=== PATIENT | female | born 1930 | race Caucasian/White ===

== ENCOUNTER 2017-06-11 13:05 | Outpatient (CLI) | payer MEDICARE ==
--- NOTE | 2017-06-11 15:13 | XRAY Report ---
TWO VIEW CHEST: 06/11/2017 COMPARISON: Comparison study two view chest 11/12/2014. INDICATION: Chronic cough. TECHNIQUE: Two views. FINDINGS: Clear lungs. No pneumothorax or pleural effusion. Stable appearance of the mediastinum. IMPRESSION: NO EVIDENCE OF ACUTE THORACIC PROCESS. TD: 06/11/2017 15:12 MTDD
== END 2017-06-11 13:06 | disposition home or self-care (01) ==
LOC: DI 13:05
PROVIDERS: ATTEND Internal Medicine
DX: R05 Cough (principal)
CPT/HCPCS: 71046

== ENCOUNTER 2017-08-06 10:28 | Inpatient (IN) | payer MEDICARE ==
--- NOTE | 2017-08-06 11:44 | CT Report ---
EXAM: CT HEAD EXAM DATE: 08/06/2017 11:33 AM. CLINICAL HISTORY: Stroke sx, awoke with sx. Left-sided weakness. COMPARISON: None. TECHNIQUE: Multiaxial CT images were obtained from the foramen magnum to the vertex. Reformats: Coron al. IV contrast: None. In accordance with CT protocol optimization, one or more of the following dose reduction techniques w ere utilized for this exam: automated exposure control, adjustment of mA and/or KV based on patient s ize, or use of iterative reconstructive technique. FINDINGS: Parenchyma: No intraparenchymal hemorrhage. No evidence of mass, midline shift, or CT findings of acu te infarction. Huerta-white differentiation is distinct. Diffuse chronic microangiopathic white matter changes are evident. Extraaxial Spaces: Normal for age. No subdural or epidural collections identified. Ventricles: The ventricles and cortical sulci are enlarged, consistent with age-related tissue loss. Sinuses and orbits: Imaged paranasal sinuses, orbits, and mastoids show no significant abnormality. Bones: No evidence of fracture or calvarial defect. Other: None. IMPRESSION: Generalized age-related cortical atrophic changes without evidence of acute intracranial abnormality. [facility] The call report notification system was initiated by Dr. Samuel Hernandez at 11:39 hrs on 08/06/17. The above findings were discussed with Dr. Blanchard by Dr. Samuel Hernandez at 11:41 hrs on 08/06/17. Referring Provider Line: [phone] SITE ID: [id number]
[2017-08-06] MEDS ORDERED: IOPAMIDOL-300 100 ML VIAL ONE (11:47)
--- NOTE | 2017-08-06 11:47 | ED Physician Documentation ---
History of Present Illness - Stated complaint Stated Complaint: STROKE LIKE SX - Chief complaint Chief Complaint: Neuro - Additonal information Additional information: hx from family 87 female has dementia was baseline last night this AM at 730 family noted her to have some diff ambulating and not have her clothes on correctly went back to bed when she awoke her daughter noticed her to be unable to stand or walk unassisted and to have weakness to her left arm and leg and diff coordinating her left side no fall no recent fever cough NVD denies pain Review of Systems Constitutional: denies: Fever Cardiac: denies: Chest pain / pressure Respiratory: denies: Dyspnea GI: denies: Abdominal Pain Neurologic: reports: Focal weakness. denies: Numbness, Headache Endocrine: denies: Easy bruising / bleeding Immunocompromised: denies: Immunocompromised PD PAST MEDICAL HISTORY - Past Medical History Cardiovascular: High cholesterol Neuro: Dementia - Past Surgical History Past Surgical History: No - Present Medications Home Medications: Ambulatory Orders Medication Instructions Recorded Confirmed PARoxetine [Paxil] 10 mg PO DAILY 11/11/14 08/06/17 Loratadine [Claritin] 10 mg PO DAILY 08/06/17 08/06/17 - Allergies Allergies/Adverse Reactions: Allergies Allergy/AdvReac Type Severity Reaction Status Date / Time No Known Drug Allergies Allergy Verified 11/11/14 23:30 - Social History Does the pt smoke?: No Smoking Status: Never smoker Does the pt drink ETOH?: No Does the pt have substance abuse?: No - Immunizations Immunizations are current?: Yes - POLST Patient has POLST: No PD ED PE NORMAL - Vitals Vital signs reviewed: Yes - General General: No: Alert and oriented X 3 (confused) - HEENT HEENT: PERRL - Neck Neck: Supple, no meningeal sign - Cardiac Cardiac: RRR - Respiratory Respiratory: No respiratory distress - Abdomen Abdomen: Soft, Non tender - Neuro Neuro: No sensory deficit. 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, No motor deficit, Normal speech Eye Opening: Spontaneous Motor: Obeys Commands Verbal: Confused GCS Score: 14 Results - Vitals Vitals: Vital Signs - 24 hr 08/06/17 10:36 Temperature 36.3 C L Heart Rate 56 L Respiratory 16 Rate Blood Pressure 141/87 H O2 Saturation 91 L Oxygen O2 Source Room air - EKG (time done) 1043 Rate: Rate (enter#) Rhythm: NSR (with many PACs) Intervals: LBBB Compare to prior EKG: Old EKG unavailable - Labs Labs: Laboratory Tests 08/06/17 08/06/17 08/06/17 10:51 11:45 11:45 WBC 5.5 RBC 4.30 Hgb 12.5 Hct 37.0 MCV 86.0 MCH 28.9 MCHC 33.6 RDW 13.3 Plt Count 172 MPV 9.1 Neut # 3.4 Lymph # 1.4 L Dawes # 0.5 Eos # 0.1 Baso # 0.1 Absolute Nucleated RBC 0.00 Nucleated RBC % 0.0 PT 11.6 INR 1.0 APTT 25.9 Sodium Potassium Chloride Carbon Dioxide Anion Gap BUN Creatinine Estimated GFR (MDRD) Glucose POC Whole Bld Glucose 91 Calcium 08/06/17 11:45 WBC RBC Hgb Hct MCV MCH MCHC RDW Plt Count MPV Neut # Lymph # Dawes # Eos # Baso # Absolute Nucleated RBC Nucleated RBC % PT INR APTT Sodium 136 Potassium 3.9 Chloride 104 Carbon Dioxide 25 Anion Gap 7.0 BUN 22 H Creatinine 1.0 Estimated GFR (MDRD) 53 L Glucose 101 H POC Whole Bld Glucose Calcium 8.7 - Rads (name of study) CTH Radiology: See rad report (no acute) CTA brain Radiology: See rad report (no acute GEORGI MCA process, atherosclerosis) CTA neck Radiology: See rad report (no acute, atherosclerosis) PD MEDICAL DECISION MAKING - ED course ED course: pt is not a TPA candidate 2/2 time of onset not known after CTs repeat neuro exam slightly improved but still with some slight slurred speech and L arm drift d/w Uzbek neuro - feels likely to be a small R lacunar - given that she is not a TPA candidate and has no GEORGI MCA or posterior thrombus to remove via IR, rec admit, start asa, get echo MRI etc paged hospitalist for admit at 1430 Departure - Departure Disposition: 66 [facility] DC/Xfer Clinical Impression: Left bundle branch block (LBBB) Stroke Qualifiers: CVA mechanism: unspecified Qualified Code(s): I63.9 - Cerebral infarction, unspecified Condition: Fair Discharge Date/Time: 08/06/17 17:15 NIHSS - Time Time: 11:20 - Level of Consciousness Level of consciousness: (0) Alert, Keenly responsive LOC Questions: (2) Answers neither correct LOC Commands: (0) Performs both correctly - Gaze Best Gaze: (0) Normal - Visual Visual: (0) No loss - Facial Palsy Facial Palsy: (1) Minor paralysis (tongue deviates right) - Motor Arms (both separate) Motor Arm (right): (0) No drift Motor Arm (left): (1) Drift - Motor Legs (both separate) Motor Leg (right): (0) No drift Motor Leg (left): (1) Drift - Limb Ataxia Limb Ataxia: (1) Present in 1 limb - Sensory Sensory: (0) Normal - Best Language Best Language: (0) No aphasia - Dysarthria Dysarthria: (1) Wexi-fu-ltveimyi dysarthria - Extinction and Inattention (formally neg Extinction and inattention: (1) Visual,tactile,auditory,spatial, or personal inattention - Total Score/Results Total Score/Result: 8
[2017-08-06 11:51] LABS: BASOPHILS # (AUTO) 0.1 10^3/uL (0.0-0.1); BASOPHILS % (AUTO) 1.1 %; EOSINOPHILS # (AUTO) 0.1 10^3/uL (0.0-0.7); EOSINOPHILS % (AUTO) 2.1 %; HGB - HEMOGLOBIN 12.5 g/dL (12.0-16.0); LYMPHOCYTES # (AUTO) 1.4 10^3/uL (1.5-3.5); LYMPHOCYTES % (AUTO) 25.2 %; MEAN CORPUSCULAR HEMOGLOBIN 28.9 pg (27.0-31.0); MEAN CORPUSCULAR HGB CONC 33.6 g/dL (32.0-36.0); MEAN PLATELET VOLUME 9.1 fL (7.9-10.8); MONOCYTES # (AUTO) 0.5 10^3/uL (0.0-1.0); MONOCYTES % (AUTO) 8.7 %; NEUTROPHILS # (AUTO) 3.4 10^3/uL (1.5-6.6); NEUTROPHILS % (AUTO) 62.9 %; PLT - PLATELET COUNT 172 10^3/uL (130-450); RED CELL DISTRIBUTION WIDTH 13.3 % (12.0-15.0); WHITE BLOOD COUNT 5.5 x10^3/uL (4.8-10.8)
[2017-08-06 11:59] LABS: CALCIUM 8.7 mg/dL (8.5-10.3)
--- NOTE | 2017-08-06 12:00 | CT Preliminary Report ---
Exam: CT NECK ANGIO IMPRESSION: 1. Prominent atherosclerotic disease at the left cervical carotid artery bifurcation. Maximal luminal stenosis is at the terminus of the left common carotid artery, measures 63%. 2. Prominent focal origin stenosis also of the left external carotid artery. 3. No acute abnormality or significant stenosis of the cervical vertebral arteries, right cervical ca rotid artery and left cervical internal carotid artery. 4. Prominent chronic degenerative changes in the cervical spinal column and notable left mandibular d ental decay. [facility] SITE ID: [id number]
[2017-08-06 12:05] LABS: PT - PROTHROMBIN TIME 11.6 secs (9.9-12.6)
--- NOTE | 2017-08-06 12:07 | CT Preliminary Report ---
Exam: CT HEAD ANGIO Head CT angiogram Impression: 1. No proximal intracranial acute large vessel occlusion. 2. Intracranial arterial atherosclerotic disease with stenosis is present involving both distal inter nal carotid arteries and both posterior cerebral arteries. 3. No acute abnormality or significant stenosis of the proximal segments of the anterior or middle ce rebral arteries. [facility] SITE ID: [id number]
--- NOTE | 2017-08-06 12:07 | CT Report ---
EXAM: CT ANGIOGRAM NECK EXAM DATE: 08/06/2017 11:36 AM. CLINICAL HISTORY: Reported history of acute stroke symptoms including left-sided weakness. COMPARISON: None. TECHNIQUE: Routine axial helical imaging was performed from the skull base through the aortic arch. R econstructions: Routine multiplanar 3D MIP reconstructions. IV Contrast: 100 mL Isovue-300. Evaluatio n of arterial stenosis is based on a NASCET method of measurement. In accordance with CT protocol optimization, one or more of the following dose reduction techniques w ere utilized for this exam: automated exposure control, adjustment of mA and/or KV based on patient s ize, or use of iterative reconstructive technique. FINDINGS: Chronic multilevel hypertrophic degenerative cervical spinal spondylosis. Poor dentition, multifocal dental decay, especially in the left mandible. No acute abnormality or significant stenosis of the ce rvical vertebral arteries. Heavy atherosclerotic calcification is present in the region of the left cervical carotid bifurcation . Severe-appearing origin stenosis of the left external carotid artery. At the left common carotid ar annemarie terminus, maximal luminal stenosis measures 63%. The left internal carotid artery itself does no t show acute abnormality or flow limiting stenosis. No acute abnormality or significant stenosis of the right cervical carotid artery, atherosclerotic di sease at the right cervical carotid bifurcation is minimal. IMPRESSION: 1. Prominent atherosclerotic disease at the left cervical carotid artery bifurcation. Maximal luminal stenosis is at the terminus of the left common carotid artery and measures 63%. 2. Prominent focal origin stenosis also of the left external carotid artery. 3. No acute abnormality or significant stenosis of the cervical vertebral arteries, right cervical ca rotid artery and left cervical internal carotid artery. 4. Prominent chronic degenerative changes in the cervical spinal column and notable left mandibular d ental decay. [facility] Referring Provider Line: [phone] SITE ID: [id number]
--- NOTE | 2017-08-06 12:25 | CT Report ---
EXAM: CT ANGIOGRAM HEAD. CT SCAN OF THE HEAD WITH CONTRAST. EXAM DATE: 08/06/2017 11:36 AM CLINICAL HISTORY: Reported acute stroke symptoms including left-sided weakness. COMPARISON: None. TECHNIQUE: - CT Scan Head: Using a multidetector scanner, axial images were acquired from the foramen magnum to the skull vertex following contrast administration. - CT Angiogram: Using a multidetector scanner, high-resolution axial images were acquired from the sk ull base through vertex following rapid infusion of intravenous contrast. Reformats: Multiplanar MIP reformats were reconstructed. Nascet criteria used for stenosis measurement. IV Contrast: 100 mL Isovue-300. In accordance with CT protocol optimization, one or more of the following dose reduction techniques w ere utilized for this exam: automated exposure control, adjustment of mA and/or KV based on patient s ize, or use of iterative reconstructive technique. FINDINGS: Brain CT with contrast: No abnormal enhancement. Awro-od-tbajkdvh diffuse brain atrophy is present. Head CT angiogram: Moderately prominent atherosclerotic calcifications of the cavernous and paraclinoid segments of both internal carotid arteries. Mild to moderate luminal stenosis of the paraclinoid segments of both int ernal carotid arteries. No intracranial vertebrobasilar insufficiency. Eeum-ym-prrtieod focal luminal stenosis of the left CHINCHILLA FARMER at the junction of the first and second order segments, most consistent with intracranial atherosclerotic disease. Mild multifocal stenosis and irregularity consistent with intracranial atherosclerotic disease of the visualized segments of the right posterior cerebral artery. No proximal flow-limiting stenosis, filling defect or occlusion of the middle cerebral arteries bilat erally. Patent small right posterior communicating artery. No evidence for eagle of Kumari aneurysm. No evid ence for major dural venous sinus thrombus. IMPRESSION: 1. No proximal intracranial acute large vessel occlusion. 2. Intracranial arterial atherosclerotic disease with stenosis is present involving both distal inter nal carotid arteries and both posterior cerebral arteries. 3. No acute abnormality or significant stenosis of the proximal segments of the anterior or middle ce rebral arteries. [facility] Referring Provider Line: [phone] SITE ID: [id number]
[2017-08-06] MEDS ORDERED: IOPAMIDOL-300 100 ML VIAL IVP ONE (12:45)
[2017-08-06] MEDS ORDERED: ASPIRIN CHEW 81 MG TABLET PO STA (15:02)
[2017-08-06] MEDS ORDERED: SODIUM CHLORIDE FLUSH 0.9% 10 ML SYRINGE IVP PRN (15:17)
--- NOTE | 2017-08-06 16:41 | HISTORY & PHYSICAL EXAMINATION ---
Chief Complaint - Chief Complaint Chief Complaint: ataxia History of Present Illness - Admitted From Admitted From:: ED - History Obtained From Records Reviewed: yes History obtained from: chart review, patient, family Exam Limitations: AMS - History of Present Illness HPI Comment/Other: Nolvia Del Valle is an 87-year old female with a past medical history of advanced dementia, hyperlipidemia, baseline life-long cognitive delay, history of pneumonia, chronic cough, and short term memory loss. She presented to the ED today with symptoms of CVA. She lives with her niece, Dinah, who recently took on guardianship a few weeks ago. For the past few weeks, the patient has been sleeping much less (up to 3 hours per day less) and having episodes of dizziness. She went to bed as usual last evening, and this morning upon awakening was found to have only the right side of her underwear pulled up after coming from the bathroom. This was alarming to her niece. She went back to bed, and awoke again with profound weakness and could no longer lift her body to a standing position. She was also noted to be weak on her left side and could not speak or answer questions. Baseline, she is demented and requires 24 hour supervision with life-long cognitive delay. She has no recent associated symptoms and denies chest pain, SOB, N/V or a new cough. She will be admitted to inpatient for a CVA work up with possible SNF placement. The patient's legal guardian, Dinah assisted me with this admission. History - Past Medical History Cardiovascular: reports: High cholesterol Neuro: reports: Dementia GI: reports: None CLIENT SERVICE CONSULTANT: reports: None : reports: Incontinence (stress related to cough), Nocturia Psych: reports: Anxiety, Obsessive compulsive disorder Musculoskeletal: reports: None Derm: reports: None MRSA Hx?: No - Past Surgical History HEENT: reports: Cataracts Derm: reports: Skin cancer surgery (forehead-removed) - Family & Social History Family History: Mother: , Father: , Sister: , Brother: Family History Comment/Other: The patient's mother from stomach cancer, father of throat cancer. The patient had 3 brothers and one sister who also suffered from cancer. Living arrangement: At home Living Situation: With family Social History [place]: [place] Dinah, her niece took over her primary care and is now her legal gaurdian. The patient had one son, who . The patient was for several years and she lost her just before her son . Both her and her son were her care takers. The patient worked at an [employer] in her younger years in the state [facility]. She requires 24 hour care/ supervision. Dinah lives with her Vic who is supportive and kind. They have 2 dogs. The patient does not drive and seems to enjoy daily life. The patient wishes to be a DNR as confirmed by oli Nix. - Substance History Use: Uses substance without health or social issues: NONE Abuse: Recurrent use of substance despite neg consequences: NONE Dependence: Experiences withdrawal or developed tolerances: NONE - POLST Patient has POLST: No POLST Status: DNR Meds/Allgy - Home Medications Home Medications: Ambulatory Orders Medication Instructions Recorded Confirmed PARoxetine [Paxil] 10 mg PO DAILY 11/11/14 08/06/17 Loratadine [Claritin] 10 mg PO DAILY 08/06/17 08/06/17 - Allergies Allergies/Adverse Reactions: Allergies Allergy/AdvReac Type Severity Reaction Status Date / Time No Known Drug Allergies Allergy Verified 11/11/14 23:30 Review of Systems - Constitutional Constitutional: reports: Fatigue, Weakness - Eyes Eyes: reports: Vision loss - Ears, Nose & Throat Ears, Nose & Throat: reports: Hearing loss, Postnasal drainage, Dental decay - Cardiovascular Cariovascular: reports: Lightheadedness - Respiratory Respiratory: reports: Cough - Genitourinary Genitourinary: reports: Other (stress incontinience) - Integumentary Integumentary: reports: Dryness - Neurological Neurological: reports: Dizziness, Memory problems, Pre-existing deficit, Incoordination, Other - Psychiatric Psychiatric: reports: Anxiety, Other (OCD-Paxil) - Hematologic/Lymphatic Hematologic/Lymphatic: reports: Bruising (Right calf) - All Other Systems All Other Systems: reports: Reviewed and negative Exam - Vital Signs Reviewed Vital Signs: Yes - Physical Exam General Appearance: positive: No acute distress, Alert Eyes Bilateral: positive: Normal inspection, PERRL ENT: positive: ENT inspection nml, Pharynx nml, No signs of dehydration, Pharyngeal erythema Neck: positive: Nml inspection, Thyroid nml, No JVD, Trachea midline, Stiff neck Respiratory: positive: Chest non-tender, No respiratory distress, Breath sounds nml Cardiovascular: positive: Regular rate & rhythm, No murmur, No gallop, Decreased pulse(s) Peripheral Pulses: positive: 1+ Abdomen: positive: Non-tender, No organomegaly, Nml bowel sounds, No distention Back: positive: Nml inspection Skin: positive: No rash, Warm, Dry, Pallor Extremities: positive: Non-tender, Full ROM, Nml appearance, No pedal edema, Other (BLE cool, + sensation) Neurologic/Psychiatric: positive: Disoriented to place, Disoriented to time, Weakness, Sensory loss, Slurred/abnml speech, Depressed mood/affect, Other ( expressive aphasia) Reflexes: Bicep (R): 2+, Bicep (L): 1+ Conclusion/Plan - Problem List (1) Left-sided weakness Conclusion/Plan: The patient was found to be non-ambulatory upon arriving to the ED, and upon exam has deficit on the left. Plan: Will order PT/OT. Fall precautions. (2) Cognitive developmental delay Conclusion/Plan: The patient has likely had a life long struggle with her delay. As per reports from her niece, Dinah, who is also her guardian; the patient has always lived with someone who has cared for her. In school, she was unable to learn to read or write. I suspect that the injury to her brain d/t acute CVA will only make matters worse. Plan: Continue to monitor mental status. (3) Stroke Conclusion/Plan: The patient has ruled in for an acute CVA and will undergo the full work up. An brain MRI was ordered immediately at the time of admit and the final results are pending. Head CT, CTA were negative for bleeding or blockages. Plan: Admit to inpatient and await results. Qualifiers: CVA mechanism: unspecified Qualified Code(s): I63.9 - Cerebral infarction, unspecified (4) Advanced dementia Conclusion/Plan: The patient requires 24 hour care as her judgment is severely impaired. She has gradually become worse, and more so within the past year, according to her niece, Dinah who is her primary medicare interviewer. Dinah relays to me that she has been stressed lately due to the patient's shortened sleep cycle that started about 1 week ago. Plan: Fall precautions and frequent nursing care. (5) Chronic sinusitis Conclusion/Plan: The patient has thickened mucosa as noted on preliminary imaging. Dinah, the patient's primary medicare interviewer and niece explains that her aunt has always had a pcl-pmb-pmwdyoqqey cough. I suspect that the patient has had chronic allergies/ sinusitis that has been causing the cough. Plan: I will do a HEENT exam tomorrow to confirm this, and start nasal sprays and a 3 day course of Afrin spray. - Lab Results Lab results reviewed: Yes Fish Bones: 08/07/17 04:30 08/07/17 04:30 - Diagnostic Imaging Results Diagnostic Imaging Results: positive: Final report reviewed - EKG Results EKG Interpreted Independently: Yes EKG Comparison: Old EKG unavailable Core Measures - Anticipated LOS I expect patient to be DC'd or transferred within 96 hours.: Yes - DVT/VTE - Prophylaxis VTE/DVT Device ordered at admit?: Yes VTE/DVT Prophylaxis med ordered at admit?: Yes - Stroke - Rehab Assessment Rehab services assessment to be ordered?: Yes - AMI - Statin at Admit Aspirin Prescribed on Admit: Yes
--- NOTE | 2017-08-06 16:41 | MRI Preliminary Report ---
Exam: MRI BRAIN W/O Impression: 1. Small, acute, nonhemorrhagic, lacunar type infarction, lateral right thalamus as described. 2. No other acute intracranial pathology is demonstrated. Critical result: A preliminary report for this examination was called to SHANNON Cyr, following interpretatio n on 08/06/2017 at 1638 hrs. SITE ID: [id number]
--- NOTE | 2017-08-06 17:34 | MRI Report ---
MRI BRAIN WITHOUT CONTRAST INDICATION: 87-year-old female with history of dementia. The patient presented this AM with acute str okelike symptoms including left-sided weakness. TECHNIQUE: 1. Sagittal T1 and coronal fat saturated T2. 2. Axial T1 3-D, FLAIR, T2, T2* and DWI. COMPARISON: Head CT 08/06/2017. FINDINGS: Again demonstrated is moderately advanced, generalized cerebral volume loss with associated ex vacuo ventriculomegaly. There appears to be disproportionately more advanced volume loss involving the ida ocampi/mesial temporal lobes with quite marked ex vacuo dilatation of the temporal horns of the later al ventricles. This pattern of volume loss suggests the possibility of Alzheimer's disease. A mild amount of white matter disease is identified in the supratentorial brain, manifested as focal and confluent T2 hyperintensities that are scattered throughout the periventricular, deep and subcort ical white matter bilaterally. A frontoparietal distribution predominates. In addition, there is invo lvement of the subinsular regions. There appear to be flow voids for the main intracranial arteries. A roughly 11 x 4 mm ovoid focus of T2 hyperintensity and diffusion restriction is identified in the l ateral aspect of the right thalamus, consistent with acute lacunar type infarction. There is at least mild T1 hypointensity suggesting that the infarction is probably at least 16 hours old. No other dif fusion restriction is demonstrated. No evidence of acute or chronic hemorrhage on T2* GRE sequence. Limited assessment of the orbits reveals no gross pathology. Changes of previous ocular lens extracti on are noted bilaterally. There is minor mucosal thickening in a few ethmoid air cells. The paranasal sinuses are otherwise caitlin ar. A small amount of fluid is demonstrated at the right mastoid tip of uncertain etiology but of doubtfu l clinical significance. No soft tissue swelling is identified overlying the right mastoid to suggest the possibility of active infection and there is no evidence of an obstructing nasopharyngeal mass. Marrow signal intensity in the regional skeletal structures is unremarkable. IMPRESSION: 1. Small acute nonhemorrhagic, lacunar type infarction, lateral right thalamus as described. 2. No other acute intracranial pathology is demonstrated. Critical result: A preliminary report for this examination was called to SHANNON Cyr, following interpretatio n on 08/06/2017 at 1638 hrs. Referring Provider Line: [phone] SITE ID: [id number]
[2017-08-06] MEDS: SODIUM CHLORIDE FLUSH 0.9% 10 ML SYRINGE IVP SCH (18:08)
[2017-08-06] MEDS: ENOXAPARIN 40 MG/0.4 ML SYRINGE SUBQ SCH (18:08)
[2017-08-06] MEDS: ATORVASTATIN 40 MG TABLET PO SCH ×2 (18:08→20:57)
[2017-08-06] MEDS: SODIUM CHLORIDE 0.9% 1,000 ML IV SCH (18:08)
[2017-08-06] MEDS ORDERED: SODIUM CHLORIDE 0.65% NASAL SPRAY NAS PRN (19:56)
[2017-08-06] MEDS ORDERED: TRIAMCINOLONE 55 MCG NASAL SPRAY NAS SCH (20:00)
[2017-08-06] MEDS: OXYMETAZOLINE NASAL SPRAY NAS SCH (21:41)
[2017-08-07 00:45] LABS: BILIRUBIN,URINE NEGATIVE (NEGATIVE); CLARITY,URINE CLEAR (CLEAR); GLUCOSE, URINE (UA) NEGATIVE (NEGATIVE); KETONES,URINE (UA) NEGATIVE (NEGATIVE); LEUKOCYTE ESTERASE, URINE TRACE (NEGATIVE); NITRITE,URINE NEGATIVE (NEGATIVE); OCCULT BLOOD,URINE NEGATIVE (NEGATIVE); PROTEIN,URINE NEGATIVE (NEGATIVE); UROBILINOGEN,URINE 0.2 (NORMAL) E.U./dL (NORMAL)
[2017-08-07 00:48] LABS: BACTERIA,URINE Rare /HPF (None Seen); RBC,URINE None Seen /HPF (0-5); SQUAMOUS EPITHELIAL CELL,UR MOD Squamous (<= Few)
[2017-08-07] MEDS: SODIUM CHLORIDE FLUSH 0.9% 10 ML SYRINGE IVP SCH ×3 (01:42→16:40)
[2017-08-07] MEDS: SODIUM CHLORIDE 0.9% 1,000 ML IV SCH (04:53)
[2017-08-07 05:02] LABS: BASOPHILS # (AUTO) 0.1 10^3/uL (0.0-0.1); BASOPHILS % (AUTO) 0.7 %; EOSINOPHILS # (AUTO) 0.1 10^3/uL (0.0-0.7); HGB - HEMOGLOBIN 12.4 g/dL (12.0-16.0); LYMPHOCYTES # (AUTO) 1.9 10^3/uL (1.5-3.5); LYMPHOCYTES % (AUTO) 25.3 %; MEAN CORPUSCULAR HEMOGLOBIN 28.3 pg (27.0-31.0); MEAN CORPUSCULAR HGB CONC 32.7 g/dL (32.0-36.0); MEAN CORPUSCULAR VOLUME 86.4 fL (81.0-99.0); MEAN PLATELET VOLUME 9.7 fL (7.9-10.8); MONOCYTES # (AUTO) 0.6 10^3/uL (0.0-1.0); MONOCYTES % (AUTO) 8.2 %; NEUTROPHILS # (AUTO) 4.7 10^3/uL (1.5-6.6); NEUTROPHILS % (AUTO) 63.8 %; PLT - PLATELET COUNT 186 10^3/uL (130-450); RED BLOOD COUNT 4.37 10^6/uL (4.20-5.40); WHITE BLOOD COUNT 7.3 x10^3/uL (4.8-10.8)
[2017-08-07 05:18] LABS: ALBUMIN 3.7 g/dL (3.2-5.5); ALBUMIN/GLOBULIN RATIO 1.2 (1.0-2.2); ALKALINE PHOSPHATASE 46 IU/L (42-121); ALT ALANINE AMINOTRANSFERASE 10 IU/L (10-60); AST ASPARTATE AMINOTRANSFERASE 21 IU/L (10-42); BILIRUBIN,TOTAL 0.8 mg/dL (0.2-1.0); BUN - BLOOD UREA NITROGEN 17 mg/dL (6-20); CALCIUM 8.7 mg/dL (8.5-10.3); CARBON DIOXIDE - CO2 24 mmol/L (21-32); CHLORIDE 109 mmol/L (101-111); CHOL/HDL RATIO 6.3 (<4.4); CHOLESTEROL 257 mg/dL; CREATININE 0.9 mg/dL (0.4-1.0); GFR - MDRD 60 (>89); GLUCOSE 112 mg/dL (70-100); HDL CHOLESTEROL 41 mg/dL; LDL CHOLESTEROL,CALCULATED 169 mg/dL; LDL/HDL RATIO 4.1 (<4.4); MAGNESIUM 2.1 mg/dL (1.7-2.8); SODIUM 140 mmol/L (135-145); TOTAL PROTEIN 6.7 g/dL (6.7-8.2); VLDL CHOLESTEROL 47 mg/dL
[2017-08-07] MEDS: PARoxetine 10 MG TABLET PO SCH (09:28)
[2017-08-07] MEDS: ENOXAPARIN 40 MG/0.4 ML SYRINGE SUBQ SCH (09:28)
[2017-08-07] MEDS: LORATADINE 10 MG TABLET PO SCH (09:28)
[2017-08-07] MEDS: OXYMETAZOLINE NASAL SPRAY NAS SCH ×2 (09:29→20:55)
[2017-08-07] MEDS: POLYETHYLENE GLYCOL 3350 17 GM PACKET PO SCH (09:30)
[2017-08-07] MEDS: FLUTICASONE NASAL SPRAY NAS SCH (09:43)
[2017-08-07] MEDS: ASPIRIN EC 325 MG TABLET PO SCH (10:50)
--- NOTE | 2017-08-07 17:19 | PROVIDER PROGRESS NOTE ---
Assessment/Plan - Problem List (1) Left-sided weakness Assessment/Plan: The patient was found to be non-ambulatory upon arriving to the ED, and has slowly improved since the time of admission. She has been progressing and can now ambulate with a wheeled walker with one person to assist. Plan: Continue physical therapy and fall precautions. (2) Cognitive developmental delay Assessment/Plan: The patient has likely had a life long struggle with her delay. As per reports from her niece, Dinah, who is also her guardian; the patient has always lived with someone who has cared for her. In school, she was unable to learn to read or write. The patient continues to have compulsive behaviors and does not always call for help when going into the bathroom. Although her ambulation has improved she still complains of numbness and tingling to her left fingers. Plan: Continue to monitor mental status. (3) Stroke Qualifiers: CVA mechanism: unspecified Qualified Code(s): I63.9 - Cerebral infarction, unspecified Assessment/Plan: The patient has ruled in for an acute CVA and will undergo the full work up. Head CT, CTA were negative for bleeding or blockages. A brain MRI was completed and confirms a small acute nonhemorrhagic, lucunar type infarction, lateral right thalamus. The patient has been hypertensive and is not at her baseline mentation. Plan: Continue to monitor. Continue high dose statin, ASA and hold B/P medications. (4) Advanced dementia Assessment/Plan: The patient requires 24 hour care as her judgment is severely impaired. She has gradually become worse, and more so within the past year, according to her niece, Dinah who is her primary post acute care registered nurse. Dinah relays to me that she has been stressed lately due to the patient's shortened sleep cycle that started about 1 week ago. The patient's dementia is now exacerbated by the recent insult of her acute CVA. Plan: Fall precautions and frequent nursing care. (5) Chronic sinusitis Assessment/Plan: The patient has thickened mucosa as noted on preliminary imaging. Dinah, the patient's primary post acute care registered nurse and niece explains that her aunt has always had a [id number]-tcyljyftiw cough. I suspect that the patient has had chronic allergies/ sinusitis that has been causing the cough. The patient's bilateral tympanic membranes are tight with milky fluid behind the membrane bilaterally. Plan: Continue nasal sprays and a 3 day course of Afrin spray. - Current Meds Current Meds: Current Medications Generic Name Dose Route Start Last Admin Trade Name Freq PRN Reason Stop Dose Admin Aspirin 325 mg 08/07/17 11:00 08/07/17 10:50 Ecotrin PO 325 mg DAILY KIAN Administration Atorvastatin Calcium 80 mg 08/06/17 17:00 08/06/17 20:57 Lipitor PO Not Given QPM KIAN Enoxaparin Sodium 40 mg 08/06/17 17:00 08/07/17 09:28 Lovenox SUBQ 40 mg DAILY KIAN Administration Fluticasone Propionate 2 sprays 08/07/17 09:00 08/07/17 09:43 Flonase REHAN 1 spr DAILY KIAN Administration Loratadine 10 mg 08/07/17 09:00 08/07/17 09:28 Claritin PO 10 mg DAILY KIAN Administration Oxymetazoline HCl 1 sprays 08/06/17 21:00 08/07/17 09:29 Afrin REHAN 08/09/17 20:59 1 spr BID KIAN Administration Paroxetine HCl 10 mg 08/07/17 09:00 08/07/17 09:28 Paxil PO 10 mg DAILY KIAN Administration Polyethylene Glycol 17 gm 08/07/17 09:00 08/07/17 09:30 Miralax PO Not Given DAILY KIAN Sodium Chloride 10 ml 08/06/17 15:17 08/06/17 21:39 Normal Saline Flush 0.9% IVP 10 ml PRN PRN Administration NEEDED PER PROVIDER ORDERS Sodium Chloride 10 ml 08/06/17 17:00 08/07/17 16:40 Normal Saline Flush 0.9% IVP 10 ml 0100,0900,1700 KIAN Administration - Lab Result Fish Bone Diagrams: 08/08/17 04:40 08/08/17 04:40 - EKG Results EKG Interpreted Independently: Yes - Diagnostic Imaging Results Diagnostic Imaging Results: Prelim report reviewed, Final report reviewed - Additional Planning Condition/Complexity: Improved My Orders: My Active Orders 08/06/17 17:00 Atorvastatin [Lipitor] 80 mg PO QPM Enoxaparin [Lovenox] 40 mg SUBQ DAILY 08/06/17 19:56 Sodium Chloride 0.65% [[place]] 1 sprays REHAN Q4HR PRN 08/06/17 21:00 Oxymetazoline [Afrin] 1 sprays REHAN BID 08/07/17 07:00 Echo Complete w/Bubble Study [ECHO] Stat 08/07/17 09:00 Fluticasone [Flonase] 2 sprays REHAN DAILY Loratadine [Claritin] 10 mg PO DAILY PARoxetine [Paxil] 10 mg PO DAILY 08/07/17 11:00 Aspirin EC [Ecotrin] 325 mg PO DAILY 08/07/17 17:00 OLANZapine ODT [ZyPREXA ODT] 5 mg TL DAILY 08/08/17 05:00 CBC - COMP BLD CT W/AUTO DIFF [HEME] DAILYLAB CMP [COMPREHENSIVE METABOLIC PANEL] [CHEM] DAILYLAB FREE T3 [IAI] DAILYLAB FREE T4 (FREE THYROXINE) [IAI] DAILYLAB MAGNESIUM [CHEM] DAILYLAB 08/09/17 05:00 CBC - COMP BLD CT W/AUTO DIFF [HEME] DAILYLAB CMP [COMPREHENSIVE METABOLIC PANEL] [CHEM] DAILYLAB MAGNESIUM [CHEM] DAILYLAB Consult/Specialty: PT Plan Discussed with:: Patient, Legal Gardian, Power of Harp Regulator Time Spent: 31-60 minutes Subjective - Subjective Patient Reports: Feeling Better, Cough, Fatigue Nursing Reports: No Complaints Objective Vital Signs: Vital Signs - 24 hr 08/06/17 08/07/17 08/07/17 18:06 00:00 04:20 Temperature 36.7 C 37.0 C 37.0 C Heart Rate [ Activity] Heart Rate [ 87 56 L 88 Radial] Heart Rate [ Supine] Respiratory 16 16 18 Rate Blood Pressure [Activity] Blood Pressure 160/92 H 136/89 H 174/83 H [Left Brachial artery] Blood Pressure [Right Brachial artery] Blood Pressure [Supine] O2 Saturation 99 99 99 08/07/17 08/07/17 08/07/17 06:00 08:36 11:25 Temperature 36.9 C Heart Rate [ 94 Activity] Heart Rate [ 99 Radial] Heart Rate [ 91 Supine] Respiratory 20 Rate Blood Pressure 170/81 H [Activity] Blood Pressure 169/70 H 142/83 H [Left Brachial artery] Blood Pressure [Right Brachial artery] Blood Pressure 154/80 H [Supine] O2 Saturation 98 08/07/17 15:45 Temperature 36.4 C L Heart Rate [ Activity] Heart Rate [ 110 H Radial] Heart Rate [ Supine] Respiratory 20 Rate Blood Pressure [Activity] Blood Pressure [Left Brachial artery] Blood Pressure 161/106 H [Right Brachial artery] Blood Pressure [Supine] O2 Saturation 99 Oxygen O2 Source Room air I&O (Last 24 Hrs): Intake and Output Totals x24h 08/05/17 08/06/17 08/07/17 23:59 23:59 23:59 Intake Total 900 2261.000 Output Total 450 Balance 900 1811.000 General: Alert, Mild distress (Per nursing reports, the patient is mildly agitated at times. Daily Zyprexa has been added.) HEENT: Atraumatic, Mucous membr. moist/pink, Other (bilateral typmanic membranes appear shinny and tight with a copious amount of mucous noted behind membranes.) Neck: Supple, No JVD Lymphatic: no adenopathy Neuro: Alert, Focal Deficits Cardiovascular: Regular rate, Normal S1, Normal S2 Respiratory: Chest non-tender, No respiratory distress, Other (diminshed.) Abdomen: Normal bowel sounds, Soft, No tenderness, No hepatospenomegaly, No masses Genitourinary: No Bleeding, No Discharge, No Tenderness Extremities: No clubbing, No cyanosis, No edema, Normal pulses, No tenderness/ swelling, Other (deformities noted due to arthritis.) Skin: No rashes, No breakdown, No significant lesion - Results Results: Laboratory Results WBC 7.3 x10^3/uL (4.8-10.8) 08/07/17 04:30 RBC 4.37 10^6/uL (4.20-5.40) 08/07/17 04:30 Hgb 12.4 g/dL (12.0-16.0) 08/07/17 04:30 Hct 37.8 % (37.0-47.0) 08/07/17 04:30 MCV 86.4 fL (81.0-99.0) 08/07/17 04:30 MCH 28.3 pg (27.0-31.0) 08/07/17 04:30 MCHC 32.7 g/dL (32.0-36.0) 08/07/17 04:30 RDW 13.0 % (12.0-15.0) 08/07/17 04:30 Plt Count 186 10^3/uL (130-450) 08/07/17 04:30 MPV 9.7 fL (7.9-10.8) 08/07/17 04:30 Neut # 4.7 10^3/uL (1.5-6.6) 08/07/17 04:30 Lymph # 1.9 10^3/uL (1.5-3.5) 08/07/17 04:30 Payne # 0.6 10^3/uL (0.0-1.0) 08/07/17 04:30 Eos # 0.1 10^3/uL (0.0-0.7) 08/07/17 04:30 Baso # 0.1 10^3/uL (0.0-0.1) 08/07/17 04:30 Absolute Nucleated RBC 0.01 x10^3/uL 08/07/17 04:30 Nucleated RBC % 0.2 /100WBC 08/07/17 04:30 PT 11.6 secs (9.9-12.6) 08/06/17 11:45 INR 1.0 (0.8-1.2) 08/06/17 11:45 APTT 25.9 secs (24.9-33.3) 08/06/17 11:45 Sodium 140 mmol/L (135-145) 08/07/17 04:30 Potassium 4.0 mmol/L (3.5-5.0) 08/07/17 04:30 Chloride 109 mmol/L (101-111) 08/07/17 04:30 Carbon Dioxide 24 mmol/L (21-32) 08/07/17 04:30 Anion Gap 7.0 (6-13) 08/07/17 04:30 BUN 17 mg/dL (6-20) 08/07/17 04:30 Creatinine 0.9 mg/dL (0.4-1.0) 08/07/17 04:30 Estimated GFR (MDRD) 60 (>89) L 08/07/17 04:30 Glucose 112 mg/dL (70-100) H 08/07/17 04:30 POC Whole Bld Glucose 91 mg/dL (70 - 100) 08/06/17 10:51 Calcium 8.7 mg/dL (8.5-10.3) 08/07/17 04:30 Magnesium 2.1 mg/dL (1.7-2.8) 08/07/17 04:30 Total Bilirubin 0.8 mg/dL (0.2-1.0) 08/07/17 04:30 AST 21 IU/L (10-42) 08/07/17 04:30 ALT 10 IU/L (10-60) 08/07/17 04:30 Alkaline Phosphatase 46 IU/L (42-121) 08/07/17 04:30 Troponin I < 0.04 ng/mL (<0.49) 08/07/17 04:30 B-Natriuretic Peptide 242 pg/mL (5-100) H 08/07/17 04:30 Total Protein 6.7 g/dL (6.7-8.2) 08/07/17 04:30 Albumin 3.7 g/dL (3.2-5.5) 08/07/17 04:30 Globulin 3.0 g/dL (2.1-4.2) 08/07/17 04:30 Albumin/Globulin Ratio 1.2 (1.0-2.2) 08/07/17 04:30 Triglycerides 233 mg/dL (-149) H 08/07/17 04:30 Cholesterol 257 mg/dL (-199) H 08/07/17 04:30 LDL Cholesterol, Calc 169 mg/dL (-129) H 08/07/17 04:30 VLDL Cholesterol 47 mg/dL 08/07/17 04:30 HDL Cholesterol 41 mg/dL (60-) L 08/07/17 04:30 LDL/HDL Ratio 4.1 (<4.4) 08/07/17 04:30 Cholesterol/HDL Ratio 6.3 (<4.4) 08/07/17 04:30 TSH 5.67 uIU/mL (0.34-5.60) H 08/07/17 04:30 Urine Color YELLOW 08/07/17 00:35 Urine Clarity CLEAR (CLEAR) 08/07/17 00:35 Urine pH 6.0 PH (5.0-7.5) 08/07/17 00:35 Ur Specific [place] <=1.005 (1.002-1.030) 08/07/17 00:35 Urine Protein NEGATIVE mg/dL (NEGATIVE) 08/07/17 00:35 Urine Glucose (UA) NEGATIVE mg/dL (NEGATIVE) 08/07/17 00:35 Urine Ketones NEGATIVE mg/dL (NEGATIVE) 08/07/17 00:35 Urine Occult Blood NEGATIVE (NEGATIVE) 08/07/17 00:35 Urine Nitrite NEGATIVE (NEGATIVE) 08/07/17 00:35 Urine Bilirubin NEGATIVE (NEGATIVE) 08/07/17 00:35 Urine Urobilinogen 0.2 (NORMAL) E.U./dL (NORMAL) 08/07/17 00:35 Ur Leukocyte Esterase TRACE (NEGATIVE) H 08/07/17 00:35 Urine RBC None Seen /HPF (0-5) 08/07/17 00:35 Urine WBC 4-5 /HPF (0-5) 08/07/17 00:35 Ur Squamous Epith Cells MOD Squamous (<= Few) H 08/07/17 00:35 Urine Bacteria Rare /HPF (None Seen) 08/07/17 00:35 Ur Microscopic Review INDICATED 08/07/17 00:35 Urine Culture Comments NOT INDICATED 08/07/17 00:35 ABX Reporting Has patient been on IV antibiotics over the past 48 hours?: No
[2017-08-07] MEDS: OLANZapine ODT 5 MG TABLET TL SCH (17:54)
[2017-08-07] MEDS: ATORVASTATIN 40 MG TABLET PO SCH (20:55)
[2017-08-08] MEDS: SODIUM CHLORIDE FLUSH 0.9% 10 ML SYRINGE IVP SCH ×3 (00:50→21:26)
[2017-08-08 04:56] LABS: BASOPHILS # (AUTO) 0.1 10^3/uL (0.0-0.1); BASOPHILS % (AUTO) 0.9 %; EOSINOPHILS # (AUTO) 0.2 10^3/uL (0.0-0.7); EOSINOPHILS % (AUTO) 2.6 %; HGB - HEMOGLOBIN 12.1 g/dL (12.0-16.0); LYMPHOCYTES # (AUTO) 2.2 10^3/uL (1.5-3.5); LYMPHOCYTES % (AUTO) 32.9 %; MEAN CORPUSCULAR HEMOGLOBIN 28.2 pg (27.0-31.0); MEAN CORPUSCULAR HGB CONC 32.7 g/dL (32.0-36.0); MEAN CORPUSCULAR VOLUME 86.4 fL (81.0-99.0); MEAN PLATELET VOLUME 9.5 fL (7.9-10.8); MONOCYTES # (AUTO) 0.7 10^3/uL (0.0-1.0); NEUTROPHILS # (AUTO) 3.6 10^3/uL (1.5-6.6); NEUTROPHILS % (AUTO) 53.6 %; PLT - PLATELET COUNT 185 10^3/uL (130-450); RED BLOOD COUNT 4.29 10^6/uL (4.20-5.40); RED CELL DISTRIBUTION WIDTH 13.1 % (12.0-15.0); WHITE BLOOD COUNT 6.8 x10^3/uL (4.8-10.8)
[2017-08-08 05:03] LABS: ALBUMIN 3.8 g/dL (3.2-5.5); ALBUMIN/GLOBULIN RATIO 1.2 (1.0-2.2); BILIRUBIN,TOTAL 0.8 mg/dL (0.2-1.0); CALCIUM 8.9 mg/dL (8.5-10.3); CREATININE 0.9 mg/dL (0.4-1.0); MAGNESIUM 2.2 mg/dL (1.7-2.8); TOTAL PROTEIN 7.1 g/dL (6.7-8.2)
[2017-08-08] MEDS: OLANZapine ODT 5 MG TABLET TL SCH (08:35)
[2017-08-08] MEDS: ASPIRIN EC 325 MG TABLET PO SCH (08:35)
[2017-08-08] MEDS: ENOXAPARIN 40 MG/0.4 ML SYRINGE SUBQ SCH (08:35)
[2017-08-08] MEDS: PARoxetine 10 MG TABLET PO SCH (08:36)
[2017-08-08] MEDS: FLUTICASONE NASAL SPRAY NAS SCH (08:37)
[2017-08-08] MEDS: POLYETHYLENE GLYCOL 3350 17 GM PACKET PO SCH (08:38)
[2017-08-08] MEDS: OXYMETAZOLINE NASAL SPRAY NAS SCH ×2 (08:38→21:28)
[2017-08-08] MEDS: LORATADINE 10 MG TABLET PO SCH (08:43)
--- NOTE | 2017-08-08 15:56 | PROVIDER PROGRESS NOTE ---
Subjective - Prog Note Date Prog Note Date: 08/08/17 Prog Note Time: 15:56 - Subjective Pt reports feeling: Improved Subjective: Nolvia's primary complaint today is ongoing numbness in her left 2 middle fingers. She denies SOB, chest pain, N/V or a new cough. She notes that she is coughing less and believes that her ears feel opened up. Current Medications - Current Medications Current Medications: Active Medications Aspirin (Ecotrin) 325 mg PO DAILY [facility] Last Admin: 08/08/17 08:35 Dose: 325 mg Atorvastatin Calcium (Lipitor) 40 mg PO QPM [facility] Last Admin: 08/07/17 20:55 Dose: 40 mg Carvedilol (Coreg) 6.25 mg PO BID [facility] Enoxaparin Sodium (Lovenox) 40 mg SUBQ DAILY [facility] Last Admin: 08/08/17 08:35 Dose: 40 mg Fluticasone Propionate (Flonase) 2 sprays REHAN DAILY [facility] Last Admin: 08/08/17 08:37 Dose: 2 spr Loratadine (Claritin) 10 mg PO DAILY [facility] Last Admin: 08/08/17 08:43 Dose: 10 mg Olanzapine (Zyprexa Odt) 5 mg TL DAILY [facility] Last Admin: 08/08/17 08:35 Dose: 5 mg Oxymetazoline HCl (Afrin) 1 sprays REHAN BID [facility] Stop: 08/09/17 20:59 Last Admin: 08/08/17 08:38 Dose: 1 spr Paroxetine HCl (Paxil) 10 mg PO DAILY [facility] Last Admin: 08/08/17 08:36 Dose: 10 mg Polyethylene Glycol (Miralax) 17 gm PO DAILY [facility] Last Admin: 08/08/17 08:38 Dose: Not Given Sodium Chloride (Normal Saline Flush 0.9%) 10 ml IVP PRN PRN PRN Reason: NEEDED PER PROVIDER ORDERS Last Admin: 08/06/17 21:39 Dose: 10 ml Sodium Chloride (Normal Saline Flush 0.9%) 10 ml IVP 0100,0900,1700 [facility] Last Admin: 08/08/17 08:35 Dose: 10 ml Sodium Chloride (Love) 1 sprays REHAN Q4HR PRN PRN Reason: Nasal Congestion PARoxetine [Paxil] 10 mg PO DAILY 11/11/14 Loratadine [Claritin] 10 mg PO DAILY 08/06/17 Objective - Vital Signs/Intake & Output Reviewed Vital Signs: Yes Vital Signs: Vital Signs x48h Temp Pulse Resp BP BP Pulse Ox 08/08/17 15:50 36.5 C 90 20 148/76 H 98 08/08/17 08:21 36.9 C 112 H 20 176/91 H 100 Intake & Output: Intake & Output 08/05/17 08/06/17 08/07/17 08/08/17 23:59 23:59 23:59 23:59 Intake Total 900 2911.000 400 Output Total 450 1000 Balance 900 2461.000 -600 - Objective General Appearance: positive: No acute distress, Alert Eyes Bilateral: positive: No lid inflammation Eyes: OU Conjunctivae pale ENT: positive: ENT inspection nml, Pharynx nml, Pharyngeal erythema, Dry mucous membranes Neck: positive: Nml inspection, Thyroid nml, No JVD, Trachea midline, Lymphadenopathy (R), Lymphadenopathy (L), Stiff neck Respiratory: positive: Chest non-tender, No respiratory distress Cardiovascular: positive: Regular rate & rhythm, No murmur, Systolic murmur, Decreased pulse(s) Peripheral Pulses: 2+ Radial (R), 2+ Radial (L) Abdomen: positive: Non-tender, No organomegaly, Nml bowel sounds Back: positive: Nml inspection Skin: positive: Color nml, No rash, Warm, Dry, Pallor Extremities: positive: Non-tender, Full ROM, Nml appearance, No pedal edema Neurologic/Psychiatric: positive: Disoriented to time, Weakness, Sensory loss, Slurred/abnml speech, Depressed mood/affect, Other (mild expressive aphasia.) Reflexes: Bicep (R): 2+, Bicep (L): 1+ - Lab Results Fish Bones: 08/09/17 06:01 08/09/17 06:01 Other Labs: Lab Results x24hrs 08/08/17 08/08/17 08/08/17 Range/Units 04:40 04:40 04:40 WBC (4.8-10.8) x10^3/uL RBC (4.20-5.40) 10^6/uL Hgb (12.0-16.0) g/dL Hct (37.0-47.0) % MCV (81.0-99.0) fL MCH (27.0-31.0) pg MCHC (32.0-36.0) g/dL RDW (12.0-15.0) % Plt Count (130-450) 10^3/uL MPV (7.9-10.8) fL Neut # (1.5-6.6) 10^3/uL Lymph # (1.5-3.5) 10^3/uL [place] # (0.0-1.0) 10^3/uL Eos # (0.0-0.7) 10^3/uL Baso # (0.0-0.1) 10^3/uL Absolute Nucleated RBC x10^3/uL Nucleated RBC % /100WBC Sodium 143 (135-145) mmol/L Potassium 3.7 (3.5-5.0) mmol/L Chloride 111 (101-111) mmol/L Carbon Dioxide 23 (21-32) mmol/L Anion Gap 9.0 (6-13) BUN 13 (6-20) mg/dL Creatinine 0.9 (0.4-1.0) mg/dL Estimated GFR (MDRD) 60 L (>89) Glucose 106 H (70-100) mg/dL Calcium 8.9 (8.5-10.3) mg/dL Magnesium 2.2 (1.7-2.8) mg/dL Total Bilirubin 0.8 (0.2-1.0) mg/dL AST 30 (10-42) IU/L ALT 14 (10-60) IU/L Alkaline Phosphatase 45 (42-121) IU/L Total Protein 7.1 (6.7-8.2) g/dL Albumin 3.8 (3.2-5.5) g/dL Globulin 3.3 (2.1-4.2) g/dL Albumin/Globulin Ratio 1.2 (1.0-2.2) Free T4 1.03 (0.58-1.64) ng/dL Free T3 pg/mL 3.25 (2.5-3.9) pg/mL 08/08/17 Range/Units 04:40 WBC 6.8 (4.8-10.8) x10^3/uL RBC 4.29 (4.20-5.40) 10^6/uL Hgb 12.1 (12.0-16.0) g/dL Hct 37.1 (37.0-47.0) % MCV 86.4 (81.0-99.0) fL MCH 28.2 (27.0-31.0) pg MCHC 32.7 (32.0-36.0) g/dL RDW 13.1 (12.0-15.0) % Plt Count 185 (130-450) 10^3/uL MPV 9.5 (7.9-10.8) fL Neut # 3.6 (1.5-6.6) 10^3/uL Lymph # 2.2 (1.5-3.5) 10^3/uL [place] # 0.7 (0.0-1.0) 10^3/uL Eos # 0.2 (0.0-0.7) 10^3/uL Baso # 0.1 (0.0-0.1) 10^3/uL Absolute Nucleated RBC 0.00 x10^3/uL Nucleated RBC % 0.0 /100WBC Sodium (135-145) mmol/L Potassium (3.5-5.0) mmol/L Chloride (101-111) mmol/L Carbon Dioxide (21-32) mmol/L Anion Gap (6-13) BUN (6-20) mg/dL Creatinine (0.4-1.0) mg/dL Estimated GFR (MDRD) (>89) Glucose (70-100) mg/dL Calcium (8.5-10.3) mg/dL Magnesium (1.7-2.8) mg/dL Total Bilirubin (0.2-1.0) mg/dL AST (10-42) IU/L ALT (10-60) IU/L Alkaline Phosphatase (42-121) IU/L Total Protein (6.7-8.2) g/dL Albumin (3.2-5.5) g/dL Globulin (2.1-4.2) g/dL Albumin/Globulin Ratio (1.0-2.2) Free T4 (0.58-1.64) ng/dL Free T3 pg/mL (2.5-3.9) pg/mL - Diagnostic Imaging Diagnostic Imaging Results: positive: Final report reviewed ABX Reporting Has patient been on IV antibiotics over the past 48 hours?: No Assessment/Plan - Problem List (1) Left-sided weakness Impression: The patient was found to be non-ambulatory upon arriving to the ED, and has slowly improved since the time of admission. She has been progressing and can now ambulate with a wheeled walker with one person to assist. Plan: Continue physical therapy and fall precautions. (2) Cognitive developmental delay Impression: The patient has likely had a life long struggle with her delay. As per reports from her niece, Dinah, who is also her guardian; the patient has always lived with someone who has cared for her. In school, she was unable to learn to read or write. The patient continues to have compulsive behaviors and does not always call for help when going into the bathroom. Although her ambulation has improved she still complains of numbness and tingling to her left fingers. Plan: Continue to monitor mental status. (3) Stroke Impression: The patient has ruled in for an acute CVA and will undergo the full work up. Head CT, CTA were negative for bleeding or blockages. A brain MRI was completed and confirms a small acute nonhemorrhagic, lucunar type infarction, lateral right thalamus. The patient has been running hypertensive and tachycardic, so the patient will need a combination medication that will not cause falls or unfavorable side effects. Plan: Continue to monitor. Continue statin, ASA. Start Coreg 6.25mg BID based on echo. Qualifiers: CVA mechanism: unspecified Qualified Code(s): I63.9 - Cerebral infarction, unspecified (4) Advanced dementia Impression: The patient requires 24 hour care as her judgment is severely impaired. She has gradually become worse, and more so within the past year, according to her niece, Dinah who is her primary critical care clinical nurse specialist. Dinah relays to me that she has been stressed lately due to the patient's shortened sleep cycle that started about 1 week ago. The patient's dementia is now exacerbated by the recent insult of her acute CVA. Plan: Fall precautions and frequent nursing care. (5) Chronic sinusitis Impression: The patient has thickened mucosa as noted on head MRI. The patient and her niece admit to much less coughing that was likely from a post nasal gtt. Plan: Continue nasal sprays and a 3 day course of Afrin spray. Qualifiers: Sinusitis location: unspecified location Qualified Code(s): J32.9 - Chronic sinusitis, unspecified (6) Hyperlipidemia Impression: Lipids were evaluated as part of the CVA work up and were found to be elevated. Triglycerides-233, Total cholesterol-257, LDL-169, HDL-41. The patient was placed on a high dose statin that was reduced to the normal recommended amount after the 3rd day. Plan: Continue to monitor and recommend life long prescription due to this stroke event. (7) Tachycardia with hypertension Impression: The patient has been both hypertensive with B/Ps in the 170/100 range and tachycardic with heart rates in the 110's. Based on echocardiogram results I will start Coreg as this will be gentle. The patient was left to have an increased B/P for post CVA care, but can now safely be more controlled. Plan: Monitor for negative side effects and monitor vital signs.
[2017-08-08] MEDS: ATORVASTATIN 40 MG TABLET PO SCH (21:27)
[2017-08-08] MEDS: CARVEDILOL 3.125 MG TABLET PO SCH (21:27)
[2017-08-09] MEDS: SODIUM CHLORIDE FLUSH 0.9% 10 ML SYRINGE IVP SCH ×2 (01:35→09:05)
[2017-08-09 06:20] LABS: BASOPHILS % (AUTO) 0.8 %; EOSINOPHILS # (AUTO) 0.2 10^3/uL (0.0-0.7); EOSINOPHILS % (AUTO) 4.4 %; HGB - HEMOGLOBIN 10.9 g/dL (12.0-16.0); LYMPHOCYTES % (AUTO) 19.5 %; MEAN CORPUSCULAR HEMOGLOBIN 28.3 pg (27.0-31.0); MEAN CORPUSCULAR HGB CONC 32.7 g/dL (32.0-36.0); MEAN CORPUSCULAR VOLUME 86.7 fL (81.0-99.0); MEAN PLATELET VOLUME 9.3 fL (7.9-10.8); MONOCYTES # (AUTO) 0.7 10^3/uL (0.0-1.0); MONOCYTES % (AUTO) 12.9 %; NEUTROPHILS # (AUTO) 3.3 10^3/uL (1.5-6.6); NEUTROPHILS % (AUTO) 62.4 %; PLT - PLATELET COUNT 157 10^3/uL (130-450); RED BLOOD COUNT 3.85 10^6/uL (4.20-5.40); RED CELL DISTRIBUTION WIDTH 13.4 % (12.0-15.0); WHITE BLOOD COUNT 5.3 x10^3/uL (4.8-10.8)
[2017-08-09 06:31] LABS: ALBUMIN 3.3 g/dL (3.2-5.5); ALBUMIN/GLOBULIN RATIO 1.2 (1.0-2.2); BILIRUBIN,TOTAL 0.8 mg/dL (0.2-1.0); CALCIUM 8.7 mg/dL (8.5-10.3); MAGNESIUM 2.1 mg/dL (1.7-2.8); TOTAL PROTEIN 6.1 g/dL (6.7-8.2)
[2017-08-09 07:59] LABS: % IRON SATURATION 16 % (20-50); IRON 44 ug/dL (28-170); TOTAL IRON BINDING CAPACITY 283 ug/dL (250-450); TRANSFERRIN 202 mg/dL (192-382)
[2017-08-09] MEDS: POLYETHYLENE GLYCOL 3350 17 GM PACKET PO SCH (08:31)
[2017-08-09] MEDS: LORATADINE 10 MG TABLET PO SCH (09:04)
[2017-08-09] MEDS: CARVEDILOL 3.125 MG TABLET PO SCH (09:04)
[2017-08-09] MEDS: OLANZapine ODT 5 MG TABLET TL SCH (09:04)
[2017-08-09] MEDS: ASPIRIN EC 325 MG TABLET PO SCH (09:04)
[2017-08-09] MEDS: PARoxetine 10 MG TABLET PO SCH (09:04)
[2017-08-09] MEDS: OXYMETAZOLINE NASAL SPRAY NAS SCH (09:05)
[2017-08-09] MEDS: FLUTICASONE NASAL SPRAY NAS SCH (09:05)
[2017-08-09 11:10] VITALS: BP 113/77
--- NOTE | 2017-08-09 11:48 | Discharge Plan ---
Discharge Plan Disposition: 01 Home, Self Care Condition: Good Prescriptions: Aspirin EC [Ecotrin] 325 mg PO DAILY #30 tablet Atorvastatin [Lipitor] 40 mg PO QPM #30 tablet Fluticasone [Flonase] 2 sprays REHAN DAILY #3 bottle Diet: Regular Activity Restrictions: Activity as Tolerated Shower Restrictions: No Driving Restrictions: Yes Assistance Devices: Walker Weight Bearing: Full Weight Additional Instructions or Follow Up instructions: You were admitted for a stroke or (CVA). A brain MRI confirmed this and showed damage in the lateral right thalamus region. The thalamus can influence the sleep cycle, coordination, and consciousness. We have also noticed some expressive aphasia (the words are there, but they don't come out), and numbness and tingling in your left hand. Ongoing therapy and practice will improve these deficits. Please continue with your nasal spray as you still have a large amount of mucous behind your tympanic membranes. The brain MRI showed that your sinus cavities have thickened lining. Flonase or nasonex comes over the counter, but I have also sent it to the pharmacy. Your blood pressure was high, and you should continue the Coreg at home. The echocardiogram showed a very mild systolic (the heart while pumping) congestive heart failure, so this is the best type of medication to take as it is gentle and keeps the heart rate on the slow side to ease the work load. You will need to be on life time aspirin and a statin due to this stroke event. Your blood levels are slightly decreased, so either you had more than usual to drink yesterday, or you are not tolerating both the aspirin and the Lovenox shots while you were in the hospital. If you notice black, tarry stools or bloody stools, or any other signs of bleeding at home, just stop the aspirin until you get to your follow up appointment. Please follow up with your PCP within one week, and he will get a copy of my discharge summary. Take care, and it was nice working with you both! No Smoking: If you smoke, Please STOP! Call for help. Follow-up with: Shine Freeman MD [Primary Care Provider] -
--- NOTE | 2017-08-09 11:53 | DISCHARGE SUMMARY ---
Discharge Summary Admit Date: 08/06/17 Discharge Date: 08/09/17 Discharging Provider: SHANNON Goodrich Primary Care Provider: Shine Freeman Code Status: Do Not Attempt Resuscitation Condition at Discharge: Good Discharge Disposition: Home Health Service - DIAGNOSES Admission Diagnoses: Cerebral infarction, unspecified (I63.9) Unspecified dementia without behavioral disturbance (F03.90) Cough (R05) Chronic sinusitis, unspecified (J32.9) Discharge Diagnoses with Status of Each Condition: CVA (cerebral vascular accident) (I63.9) new on this admit, care to continue. Advanced dementia (F03.90)-chronic, stable. Chronic sinusitis (J32.9)- chronic, nasal sprays prescribed. Hyperlipidemia (E78.5)- chronic, life long statin therapy. Tachycardia with hypertension (R00.0)- stable, meds to continue. Cognitive developmental delay (F81.9) - chronic, stable. Left-sided weakness (R53.1) -new on this admit, improved. Systolic congestive heart failure (I50.20)- new on this admit, stable. - HPI History of Present Illness: Nolvia Del Valle is an 87-year old female with a past medical history of advanced dementia, hyperlipidemia, baseline life-long cognitive delay, history of pneumonia, chronic cough, and short term memory loss. She presented to the ED today with symptoms of CVA. She lives with her niece, Dinah, who recently took on guardianship a few weeks ago. For the past few weeks, the patient has been sleeping much less (up to 3 hours per day less) and having episodes of dizziness. She went to bed as usual last evening, and this morning upon awakening was found to have only the right side of her underwear pulled up after coming from the bathroom. This was alarming to her niece. She went back to bed, and awoke again with profound weakness and could no longer lift her body to a standing position. She was also noted to be weak on her left side and could not speak or answer questions. Baseline, she is demented and requires 24 hour supervision with life-long cognitive delay. She has no recent associated symptoms and denies chest pain, SOB, N/V or a new cough. She will be admitted to inpatient for a CVA work up with possible SNF placement. The patient's legal guardian, Dinah assisted me with this admission. - CONSULTS | PROCEDURES Consultations: PT/OT/Neurology on admit,[facility] - HOSPITAL COURSE Hospital Course: The following diagnoses were prevalent during this hospital stay: (1) Left-sided weakness The patient was found to be non-ambulatory upon arriving to the ED, and has slowly improved since the time of admission. She has been progressing and can now ambulate with a wheeled walker with one person to assist. She has residual left handed numbness/tingling with lack of fine-motor dexterity and at times cannot accurately place food or utensils in her mouth. She is left-handed, so this has been difficult for her. She continues to be compulsive and requires a bed alarm when alone in the room. She underwent a physical therapy evaluation who recommended 24-hours supervision and further PT for gait training, stability and endurance. She is taken care of by her niece who is also her legal guardian and is considered home bound. Attempts were made to apply for short term rehab, without success. A [id number] exam was completed and I met with the patient and her niece regarding discharge home with home health services including PT/OT/social work and a [employer]. All parties were in agreement. (2) Cognitive developmental delay The patient has likely had a life long struggle with her delay. As per reports from her niece, Dinah, who is also her guardian; the patient has always lived with someone who has cared for her. In school, she was unable to learn to read or write. The patient continues to have compulsive behaviors and does not always call for help when going into the bathroom. Although her ambulation has improved, she still complains of numbness and tingling to her left fingers. (3) Stroke The patient has ruled in for an acute CVA and underwent a full work up. Head CT , CTA were negative for bleeding or blockages. A brain MRI was completed and confirms a small acute nonhemorrhagic, lucunar type infarction, lateral right thalamus. The patient has been running hypertensive and tachycardic, so this was allowed for the first 72 hours. The patient was continued on a normal dose statin, ASA and given Coreg 6.25mg BID based on echo results. (4) Advanced dementia The patient requires 24 hour care as her judgment is severely impaired. She has gradually become worse, and more so within the past year, according to her niece, Dinah who is her primary healthcare or medical. Dinah relays to me that she has been stressed lately due to the patient's shortened sleep cycle that started about 1 week ago. The area of infarct may influence sleep/wake cycles, coordination and consciousness. The patient's dementia is now exacerbated by the recent insult of her acute CVA. (5) Chronic sinusitis The patient has thickened mucosa as noted on head MRI. The patient has had a chronic, dry, non-productive cough for several years that has increased in frequency in the past few months. A thorough exam was completed upon admission , which revealed copious fluid bilaterally behind tympanic membranes using the otoscope. The patient then explains how her head has felt "full" lately. She was started on a course of Afrin spray BID x3 days, and daily nasal steroids using Flonase which should continue. The patient and her niece admit to much less coughing that was likely from a post nasal gtt. (6) Hyperlipidemia Lipids were evaluated as part of the CVA work up and were found to be elevated. Triglycerides-233, Total cholesterol-257, LDL-169, HDL-41. The patient was placed on a high dose statin that was reduced to the normal recommended amount after the 3rd day. This was prescribed upon discharge. (7) Tachycardia with hypertension The patient has been both hypertensive with B/Ps in the 170/100 range and tachycardic with heart rates in the 110's. Based on echocardiogram results I will start Coreg as this will be gentle. The patient was left to have an increased B/P for post CVA care, but can now safely be more controlled. (8) Systolic CHF with reduced EF An echocardiogram was completed as part of CVA work up and shows no atrial shunt by a bubble study, but does show reduced LV function and an EF of 45-50%. Coreg is a good choice in this setting and was prescribed upon discharge after the patient received 24 hours of this medication prior to discharge. Disposition: The patient was transported via private car to her guardian, niece 's home in stable condition. She was ambulatory and required no oxygen. - ALLERGIES Allergies/Adverse Reactions: Allergies Allergy/AdvReac Type Severity Reaction Status Date / Time No Known Drug Allergies Allergy Verified 11/11/14 23:30 - MEDICATIONS Home Medications: Ambulatory Orders Medication Instructions Recorded Confirmed PARoxetine [Paxil] 10 mg PO DAILY 11/11/14 08/06/17 Loratadine [Claritin] 10 mg PO DAILY 08/06/17 08/06/17 Aspirin EC [Ecotrin] 325 mg PO DAILY #30 tablet 08/09/17 Atorvastatin [Lipitor] 40 mg PO QPM #30 tablet 08/09/17 Fluticasone [Flonase] 2 sprays REHAN DAILY #3 bottle 08/09/17 - PHYSICAL EXAM AT DISCHARGE General Appearance: positive: No acute distress, Alert Eyes Bilateral: positive: Normal inspection, PERRL ENT: positive: ENT inspection nml, Pharynx nml, Pharyngeal erythema, Dry mucous membranes, Other (copious mucous noted behind bilateral tympanic membranes.) Neck: positive: Nml inspection, Thyroid nml, No JVD, Trachea midline Respiratory: positive: Chest non-tender, No respiratory distress, Breath sounds nml Cardiovascular: positive: Regular rate & rhythm, Systolic murmur, Decreased pulse(s) Peripheral Pulses: positive: 1+ Abdomen: positive: Non-tender, No organomegaly, Nml bowel sounds, No distention Back: positive: Nml inspection Skin: positive: No rash, Warm, Dry, Pallor Extremities: positive: Non-tender, Full ROM, Nml appearance, No pedal edema Neurologic/Psychiatric: positive: Oriented x3, CN's nml (2-12), Weakness, Sensory loss, Slurred/abnml speech, Depressed mood/affect, Other (baseline cognitive delay) Reflexes: Bicep (R): 4+, Bicep (L): 2+ - LABS Result Diagrams: 08/09/17 06:01 08/09/17 06:01 - DIAGNOSTIC IMAGING Diagnostic Imaging Results: Final report reviewed Diagnostic Imaging Results Comments: EXAM: CT ANGIOGRAM NECK EXAM DATE: 08/06/2017 11:36 AM. CLINICAL HISTORY: Reported history of acute stroke symptoms including left- sided weakness. COMPARISON: None. TECHNIQUE: Routine axial helical imaging was performed from the skull base through the aortic arch. Reconstructions: Routine multiplanar 3D MIP reconstructions. IV Contrast: 100 mL Isovue-300. Evaluation of arterial stenosis is based on a NASCET method of measurement. In accordance with CT protocol optimization, one or more of the following dose reduction techniques were utilized for this exam: automated exposure control, adjustment of mA and/or KV based on patient size, or use of iterative reconstructive technique. FINDINGS: Chronic multilevel hypertrophic degenerative cervical spinal spondylosis. Poor dentition, multifocal dental decay, especially in the left mandible. No acute abnormality or significant stenosis of the cervical vertebral arteries. Heavy atherosclerotic calcification is present in the region of the left cervical carotid bifurcation. Severe-appearing origin stenosis of the left external carotid artery. At the left common carotid artery terminus, maximal luminal stenosis measures 63%. The left internal carotid artery itself does not show acute abnormality or flow limiting stenosis. No acute abnormality or significant stenosis of the right cervical carotid artery, atherosclerotic disease at the right cervical carotid bifurcation is minimal. IMPRESSION: 1. Prominent atherosclerotic disease at the left cervical carotid artery bifurcation. Maximal luminal stenosis is at the terminus of the left common carotid artery and measures 63%. 2. Prominent focal origin stenosis also of the left external carotid artery. 3. No acute abnormality or significant stenosis of the cervical vertebral arteries, right cervical carotid artery and left cervical internal carotid artery. 4. Prominent chronic degenerative changes in the cervical spinal column and notable left mandibular dental decay. EXAM: CT HEAD EXAM DATE: 08/06/2017 11:33 AM. CLINICAL HISTORY: Stroke sx, awoke with sx. Left-sided weakness. COMPARISON: None. TECHNIQUE: Multiaxial CT images were obtained from the foramen magnum to the vertex. Reformats: Coronal. IV contrast: None. In accordance with CT protocol optimization, one or more of the following dose reduction techniques were utilized for this exam: automated exposure control, adjustment of mA and/or KV based on patient size, or use of iterative reconstructive technique. FINDINGS: Parenchyma: No intraparenchymal hemorrhage. No evidence of mass, midline shift, or CT findings of acute infarction. Huerta-white differentiation is distinct. Diffuse chronic microangiopathic white matter changes are evident. Extraaxial Spaces: Normal for age. No subdural or epidural collections identified. Ventricles: The ventricles and cortical sulci are enlarged, consistent with age- related tissue loss. Sinuses and orbits: Imaged paranasal sinuses, orbits, and mastoids show no significant abnormality. Bones: No evidence of fracture or calvarial defect. Other: None. IMPRESSION: Generalized age-related cortical atrophic changes without evidence of acute intracranial abnormality. EXAM: CT ANGIOGRAM HEAD. CT SCAN OF THE HEAD WITH CONTRAST. EXAM DATE: 08/06/2017 11:36 AM CLINICAL HISTORY: Reported acute stroke symptoms including left-sided weakness. COMPARISON: None. TECHNIQUE: - CT Scan Head: Using a multidetector scanner, axial images were acquired from the foramen magnum to the skull vertex following contrast administration. - CT Angiogram: Using a multidetector scanner, high-resolution axial images were acquired from the skull base through vertex following rapid infusion of intravenous contrast. Reformats: Multiplanar MIP reformats were reconstructed. Nascet criteria used for stenosis measurement. IV Contrast: 100 mL Isovue-300. In accordance with CT protocol optimization, one or more of the following dose reduction techniques were utilized for this exam: automated exposure control, adjustment of mA and/or KV based on patient size, or use of iterative reconstructive technique. FINDINGS: Brain CT with contrast: No abnormal enhancement. [id number] diffuse brain atrophy is present. Head CT angiogram: Moderately prominent atherosclerotic calcifications of the cavernous and paraclinoid segments of both internal carotid arteries. Mild to moderate luminal stenosis of the paraclinoid segments of both internal carotid arteries. No intracranial vertebrobasilar insufficiency. [id number] focal luminal stenosis of the left CH[employer] at the junction of the first and second order segments, most consistent with intracranial atherosclerotic disease. Mild multifocal stenosis and irregularity consistent with intracranial atherosclerotic disease of the visualized segments of the right posterior cerebral artery. No proximal flow-limiting stenosis, filling defect or occlusion of the middle cerebral arteries bilaterally. Patent small right posterior communicating artery. No evidence for [place] of Kumari aneurysm. No evidence for major dural venous sinus thrombus. IMPRESSION: 1. No proximal intracranial acute large vessel occlusion. 2. Intracranial arterial atherosclerotic disease with stenosis is present involving both distal internal carotid arteries and both posterior cerebral arteries. 3. No acute abnormality or significant stenosis of the proximal segments of the anterior or middle cerebral arteries. MRI BRAIN WITHOUT CONTRAST INDICATION: 87-year-old female with history of dementia. The patient presented this AM with acute stroke like symptoms including left-sided weakness. TECHNIQUE: 1. Sagittal T1 and coronal fat saturated T2. 2. Axial T1 3-D, FLAIR, T2, T2* and DWI. COMPARISON: Head CT 08/06/2017. FINDINGS: Again demonstrated is moderately advanced, generalized cerebral volume loss with associated ex vacuo ventriculomegaly. There appears to be disproportionately more advanced volume loss involving the hippocampi/mesial temporal lobes with quite marked ex vacuo dilatation of the temporal horns of the lateral ventricles. This pattern of volume loss suggests the possibility of Alzheimer's disease. A mild amount of white matter disease is identified in the supratentorial brain , manifested as focal and confluent T2 hyperintensities that are scattered throughout the periventricular, deep and subcortical white matter bilaterally. A frontoparietal distribution predominates. In addition, there is involvement of the subinsular regions. There appear to be flow voids for the main intracranial arteries. A roughly 11 x 4 mm ovoid focus of T2 hyperintensity and diffusion restriction is identified in the lateral aspect of the right thalamus, consistent with acute lacunar type infarction. There is at least mild T1 hypointensity suggesting that the infarction is probably at least 16 hours old. No other diffusion restriction is demonstrated. No evidence of acute or chronic hemorrhage on T2* GRE sequence. Limited assessment of the orbits reveals no gross pathology. Changes of previous ocular lens extraction are noted bilaterally. There is minor mucosal thickening in a few ethmoid air cells. The paranasal sinuses are otherwise clear. A small amount of fluid is demonstrated at the right mastoid tip of uncertain etiology but of doubtful clinical significance. No soft tissue swelling is identified overlying the right mastoid to suggest the possibility of active infection and there is no evidence of an obstructing nasopharyngeal mass. Marrow signal intensity in the regional skeletal structures is unremarkable. IMPRESSION: 1. Small acute nonhemorrhagic, lacunar type infarction, lateral right thalamus as described. 2. No other acute intracranial pathology is demonstrated. ECHOCARDIOGRAM: 08/07/17-Final 1. Overall LV systolic function is mildly impaired with an EF of 45-50%. 2. Bubble study was negative for an atrial shunt. - FOLLOW UP Follow Up: Disposition: 01 Home, Self Care Condition: Good Prescriptions: Aspirin EC [Ecotrin] 325 mg PO DAILY #30 tablet Atorvastatin [Lipitor] 40 mg PO QPM #30 tablet Fluticasone [Flonase] 2 sprays REHAN DAILY #3 bottle Diet: Regular Activity Restrictions: Activity as Tolerated Shower Restrictions: No Driving Restrictions: Yes Assistance Devices: Walker Weight Bearing: Full Weight Additional Instructions or Follow Up instructions: You were admitted for a stroke or (CVA). A brain MRI confirmed this and showed damage in the lateral right thalamus region. The thalamus can influence the sleep cycle, coordination, and consciousness. We have also noticed some expressive aphasia (the words are there, but they don't come out), and numbness and tingling in your left hand. Ongoing therapy and practice will improve these deficits. Please continue with your nasal spray as you still have a large amount of mucous behind your tympanic membranes. The brain MRI showed that your sinus cavities have thickened lining. Flonase or nasonex comes over the counter, but I have also sent it to the pharmacy. Your blood pressure was high, and you should continue the Coreg at home. The echocardiogram showed a very mild systolic (the heart while pumping) congestive heart failure, so this is the best type of medication to take as it is gentle and keeps the heart rate on the slow side to ease the work load. You will need to be on life time aspirin and a statin due to this stroke event. Your blood levels are slightly decreased, so either you had more than usual to drink yesterday, or you are not tolerating both the aspirin and the Lovenox shots while you were in the hospital. If you notice black, tarry stools or bloody stools, or any other signs of bleeding at home, just stop the aspirin until you get to your follow up appointment. It is recommended that you have home PT for further gait training, strengthening , and to ensure home safety to prevent falls. Please follow up with your PCP within one week, and he will get a copy of my discharge summary. - TIME SPENT Time Spent in Discharge (Minutes): 60
== END 2017-08-09 12:35 | disposition home health service (06) | DRG 65 ==
LOC: ED 10:28 → MS3 15:17
PROVIDERS: ADMIT Nurse Practitioner; ATTEND Nurse Practitioner
DX: I63.9 Cerebral infarction, unspecified (principal); I44.7 Left bundle-branch block, unspecified; I50.22 Chronic systolic (congestive) heart failure; E78.00 Pure hypercholesterolemia, unspecified; G81.94 Hemiplegia, unspecified affecting left nondominant side; R29.708 NIHSS score 8; F03.90 Unspecified dementia, unspecified severity, without behavioral disturbance, psychotic disturbance, mood disturbance, and anxiety; R05 Cough; J32.9 Chronic sinusitis, unspecified; E78.5 Hyperlipidemia, unspecified; R00.0 Tachycardia, unspecified; F81.9 Developmental disorder of scholastic skills, unspecified; I11.0 Hypertensive heart disease with heart failure; Z66 Do not resuscitate; N39.3 Stress incontinence (female) (male); R35.1 Nocturia; F41.9 Anxiety disorder, unspecified; F42.9 Obsessive-compulsive disorder, unspecified; Z85.828 Personal history of other malignant neoplasm of skin
CPT/HCPCS: 36415; 70450; 70496; 70498; 70551; 80048; 80053; 80061; 81001; 81003; 82270; 83540; 83721; 83735; 83880; 84439; 84443; 84466; 84481; 84484; 85025; 85610; 85730; 87086; 93005; 93306; 99284

== ENCOUNTER 2018-05-09 04:33 | Outpatient (CLI) | payer SELFPAY | END 2018-05-09 04:34 | disposition EMS.NT | LOC: EMS 04:33 | PROVIDERS: ATTEND Surgery ==